=== PATIENT | male | born 1965 ===

== ENCOUNTER 2017-10-27 05:33 | Inpatient (IN) | payer BC ==
--- NOTE | 2017-10-23 09:25 | GHP ---
[f rep st] PREOP HISTORY AND PHYSICAL DATE OF ADMISSION: 10/26/2017 PROBLEM: Left hip severe degenerative arthritis. HISTORY OF PRESENT ILLNESS: The patient is a 52-year-old man admitted for a left hip Eleni hip resurfacing arthroplasty. He lives in [place]. He has had progressive pain in his left hip since 2010. It has been very painful since 2013. He is limping. He can still surf and play tennis but it is very painful for a couple of days after those activities. He tried stem cell treatments in April of 2015 which helped for about 6-12 months. He has been taking Tylenol. He has trouble putting on his shoes and socks on the left foot. He has modest pain in the right hip. He has done an extensive amount of yoga and physical therapy, trying to maintain his flexibility. He had 1 cortisone injection in the left hip in March of 2014 but he did not think it helped. He has failed nonsurgical treatment. He has severe degenerative arthritis. He is admitted for a left hip [place] hip resurfacing arthroplasty. PAST MEDICAL HISTORY: Overall he is in excellent general health. No history of heart disease, stents, DVT, hepatitis, MRSA staph infections, sleep apnea or bleeding problems. CURRENT MEDICATIONS: None. ALLERGIES: Drugs: None. Metal allergy: None. Latex allergy: None. SOCIAL HISTORY: The patient is . He does not smoke cigarettes and occasionally drinks alcohol. PHYSICAL EXAMINATION: VITAL SIGNS: Height 5 feet 11-1/2 inches. Weight 162 pounds, BMI 22.3. HEENT: Eyes, conjunctivae and sclerae are clear. Pupils are round and reactive. Mouth, good oral hygiene. No loose teeth. CHEST: Clear. HEART: Regular rhythm, no murmurs. EXTREMITIES: Pertinent findings limited to his left hip. He has full hip extension and 90 degrees of flexion. As he flexes the hip, he develops a 10 degree external rotation contracture and has 10 additional degrees of external rotation. Abduction 20 degrees. IMPRESSION ON ADMISSION: 1. Left hip severe degenerative arthritis which is very symptomatic. 2. Right hip moderate degenerative arthritis which is only mildly symptomatic. PLAN: He will undergo a left hip [place] hip resurfacing arthroplasty. The surgery has been described to him, including the risks, complications, expectations, and recovery time. I have discussed with him the risk of dislocation, femoral neck fracture, infection, and sciatic nerve injury. We have also discussed extensively the controversy and the potential problems with metal ions in the blood and in the soft tissues around the hip joint. He is familiar with the option of a conventional total hip replacement. All his questions have been answered, and he consents to surgery. /[id number]/MODL MTDD
[2017-10-27] MEDS ORDERED: GABAPENTIN 300 MG CAP PO ONE (05:57)
[2017-10-27] MEDS ORDERED: DEXAMETHASONE 4 MG/ML VIAL IVP ONE (05:57)
[2017-10-27] MEDS ORDERED: ceFAZolin 2 GM/DEXTROSE 100 ML IV ONE (05:57)
[2017-10-27] MEDS ORDERED: FAMOTIDINE 20 MG TAB PO ONE (05:57)
[2017-10-27] MEDS ORDERED: ACETAMINOPHEN 325 MG TAB PO ONE (05:57)
[2017-10-27] MEDS ORDERED: ONDANSETRON 4 MG/2 ML VIAL IVP ONE (05:57)
[2017-10-27] MEDS ORDERED: LR 1,000 ML IV ONE (05:58)
[2017-10-27] MEDS ORDERED: LIDOCAINE 1% 2 ML INJ ID PRN (05:58)
[2017-10-27] MEDS ORDERED: ROPIVACAINE 0.2% 80 MG, EPINEPHrine 0.2 MG, KETOROLAC TROMETHAMINE 30 MG in SYRINGE 0 ML IU ONE (06:00)
[2017-10-27] MEDS ORDERED: POVIDONE-IODINE 20 ML in SODIUM CL IRRIG SOLUTION 500 ML IRR ONE (06:00)
[2017-10-27] MEDS ORDERED: TRANEXAMIC ACID 1,000 MG in NS 100 ML IV ONE (06:00)
[2017-10-27] MEDS ORDERED: ceFAZolin 1 GM/5 ML SYR ONE (06:24)
[2017-10-27] MEDS ORDERED: MIDAZOLAM 2 MG/2 ML VIAL IVP ONE (06:51)
--- NOTE | 2017-10-27 06:51 | PDANEPAE ---
ANE History of Present Illness L hip OA ANE Past Medical History - Cardiovascular History Hx Hypertension: No Hx Arrhythmias: No Hx Chest Pain: No Hx Coronary Artery / Peripheral Vascular Disease: No Hx CHF / Valvular Disease: No Hx Palpitations: No - Pulmonary History Hx COPD: No Hx Asthma/Reactive Airway Disease: No Hx Recent Upper Respiratory Infection: No Hx Oxygen in Use at Home: No Hx Sleep Apnea: No Sleep Apnea Screening Result - Last Documented: Negative - Neurologic History Hx Cerebrovascular Accident: No Hx Seizures: No Hx Dementia: No - Endocrine History Hx Diabetes: No - Renal History Hx Renal Disorders: No - Liver History Hx Hepatic Disorders: No - Neurological & Psychiatric Hx Hx Neurological and Psychiatric Disorders: No - Cancer History Hx Cancer: No - Congenital Disorder History Hx Congenital Disorders: No - GI History Hx Gastrointestinal Disorders: No - Other Health History Other Health History: OSTEOARTHRITIS. HAIR LOSS - Chronic Pain History Chronic Pain: Yes (LT HIP) - Surgical History Prior Surgeries: NONE ANE Review of Systems Review of Systems: - Exercise capacity METS (RN): 6 METS ANE Patient History - Allergies Allergies/Adverse Reactions: No Known Allergies Allergy (Unverified 10/02/17 11:50) - Home Medications Home medications: home medication list seen and reviewed Home Medications: Acetaminophen [Tylenol ES 500 mg (*)] 500 mg PO DAILY PRN 10/02/17 [Last Taken 10/25/17] Carboxymethylcellulose 1% [Refresh Celluvisc (*)] 1 drop EACHEYE DAILY PRN 10/02 [Last Taken 1 Week Ago ~10/20/17] Finasteride [Proscar 5 MG (*)] 5 mg PO MOTUWETH 10/02/17 [Last Taken 10/24/17] Herbals/Supplements -Info Only 1 ea PO DAILY 10/02/17 [Last Taken 1 Week Ago ~] Vitamin B Complex [Vitamin B Complex (OTC)] 1 each PO DAILY 10/02/17 [Last Taken 1 Week Ago ~10/20/17] - NPO status NPO Since - Liquids (Date): 10/27/17 NPO Since - Liquids (Time): 00:00 NPO Since - Solids (Date): 10/26/17 NPO Since - Solids (Time): 20:00 - Anes Hx Anes Hx: no prior problems - Smoking Hx Smoking Status: Former smoker - Family Anes Hx Family Hx Anesthesia Complications: NEG ANE Labs/Vital Signs - Vital Signs Blood Pressure: 127/84 Heart Rate: 67 Respiratory Rate: 18 O2 Sat (%): 96 Height: 181.61 cm Weight: 73.482 kg ANE Physical Exam - Airway Neck exam: FROM Mallampati Score: Class 2 Mouth exam: normal dental/mouth exam - Pulmonary Pulmonary: no respiratory distress, no rales or rhonchi, clear to auscultation - Cardiovascular Cardiovascular: regular rate and rhythym, no murmur, rub, or gallop - ASA Status ASA Status: I ANE Anesthesia Plan Anesthesia Plan: MAC, spinal
--- NOTE | 2017-10-27 07:01 | PDHPUP ---
History & Physical Update H&P update statement: This history and physical update is based on an assessment of the patient which was completed after admission or registration (within 24 hours), but prior to the surgery/procedure. H&P update: H&P reviewed & patient examined
[2017-10-27] MEDS ORDERED: PROPOFOL/EMULSION 500 MG/50 ML BOTTLE IV ONE ×3 (07:02→08:39)
[2017-10-27] MEDS ORDERED: BUPIVACAINE/DEXTROSE 7.5MG/ML 2 ML SPINAL AMP SP ONE (07:03)
[2017-10-27] MEDS ORDERED: fentaNYL 100 MCG/2 ML INJ IVP PRN (08:18)
[2017-10-27] MEDS ORDERED: HYDROmorphONE/DILAUDID 1 MG/ML INJ IVP PRN (08:18)
[2017-10-27] MEDS ORDERED: NALOXONE HCL 0.4 MG/ML INJ IVP PRN (08:18)
[2017-10-27] MEDS ORDERED: ONDANSETRON 4 MG/2 ML VIAL IVP PRN ×2 (08:18→09:31)
--- NOTE | 2017-10-27 09:17 | POSTOPPROG ---
Post Op Note Date of Operation: 10/27/17 Surgeon: Kaveh Pappas Security Rep: Rodrigo Anesthesiologist: More Anesthesia: IV Sedation, Spinal Post-op Diagnosis: left hip arthritis Procedure: L BHR Inf/Abcess present in the surg proc area at time of surgery?: No EBL: 100-500
[2017-10-27] MEDS ORDERED: TEMAZEPAM 15 MG CAP PO PRN (09:31)
[2017-10-27] MEDS ORDERED: BISACODYL 10 MG SUPP PR PRN (09:31)
[2017-10-27] MEDS ORDERED: MAGNESIUM HYDROXIDE 30 ML UDCUP PO PRN (09:31)
[2017-10-27] MEDS ORDERED: diphenhydrAMINE 25 MG CAP PO PRN (09:31)
[2017-10-27] MEDS ORDERED: PROMETHAZINE HCL 25 MG/ML INJ IVP PRN (09:31)
[2017-10-27] MEDS ORDERED: oxyCODONE IR 5 MG TAB PO PRN (09:31)
[2017-10-27] MEDS ORDERED: CARBOXYMETHYLCELLULOSE 1% 0.4 ML DROPERETTE EACHEYE PRN (09:31)
[2017-10-27] MEDS ORDERED: ONDANSETRON DISINTEGRATING 4 MG TAB PO PRN (09:31)
[2017-10-27] MEDS ORDERED: PROMETHAZINE HCL 25 MG SUPPR PR PRN (09:31)
[2017-10-27] MEDS ORDERED: POLYETHYLENE GLYCOL 3350 17 GM PKT PO PRN (09:31)
[2017-10-27] MEDS ORDERED: DIPHENOXYLATE/ATROPINE LOMOTIL 1 TAB PO PRN (09:31)
[2017-10-27] MEDS ORDERED: METOCLOPRAMIDE 10 MG/2 ML VIAL IVP PRN (09:31)
[2017-10-27] MEDS ORDERED: traMADol 50 MG TAB PO PRN (09:31)
[2017-10-27] MEDS ORDERED: LACTULOSE 20 GM/30 ML UDCUP PO PRN (09:31)
[2017-10-27] MEDS ORDERED: NS 500 ML IV PRN (09:31)
[2017-10-27] MEDS ORDERED: CYCLOBENZAPRINE 10 MG TAB PO PRN (09:31)
--- NOTE | 2017-10-27 09:37 | POSTANESTH ---
Post Anesthetic Evaluation Cardiovascular Status: Normal, Stable Respiratory Status: Normal, Stable Level of Consciousness/Mental Status: Alert and Oriented Pain Control: Adequate, Prn Tx Ordered Nausea/Vomiting Control: Adequate, Prn Tx Ordered Complications Possibly Related to Anesthesia: None Noted
[2017-10-27] MEDS ORDERED: LR 1,000 ML IV SCH (10:00)
--- NOTE | 2017-10-27 10:02 | GOP ---
[f rep st] OPERATIVE REPORT DATE OF OPERATION: 10/27/2017 SURGEON: Kaveh Pappas MD WARNING ANALYST: RASHMI Wing PAC ANESTHESIA: Combination of Marcaine, spinal, and IV sedation. ANESTHESIOLOGIST: Dr. Gibran Aguero. PREOPERATIVE DIAGNOSIS: Left hip severe degenerative arthritis. POSTOPERATIVE DIAGNOSIS: Left hip severe degenerative arthritis. PROCEDURE PERFORMED: Left hip Eleni hip resurfacing arthroplasty. FINDINGS: ESTIMATED BLOOD LOSS: About 400 mL. I used a [employer] Eleni hip resurfacing system. The acetabular component was 58 mm in d iameter and press fit. The femoral head was 52 mm and cemented. He was awakened from anesthesia, an d rolled to the supine position on his [facility]. A long-leg compressive stocking and SCD were applied to the operative leg. An abduction pillow was placed between his knees. He was awakened fr om anesthesia, transferred to his [facility], and taken to PACU in satisfactory condition. Ther e were no recognized intraoperative complications. DESCRIPTION OF PROCEDURE: The patient was given 2 g of IV Ancef within 60 minutes of surgery. He al so received IV tranexamic acid at a dose of 1000 mg. He was placed on the operating room table and g iven spinal anesthesia with Marcaine by Dr. Aguero. He was then placed supine and given IV sed ation. A [place] catheter was not used. He wore a compressive stocking and SCD on the nonoperative le g. The patient was rolled to the right lateral decubitus position. An axillary roll was used, and a ll pressure points were carefully padded. The position was secured with the pegboard table attachmen t. I was careful to lock his pelvis in a rigid vertical position. His perineum was isolated with pl astic adhesive drapes. The left hip and left lower extremity were prepped with ChloraPrep. They wer e draped free using sterile sheets, stockinette, and Ioban plastic drape. The [employer] time-out was performed to verify the correct patient identity and the c orrect surgical side and site. The [place] time-out was also performed. I made a 6-7 inch straight oblique posterolateral hip skin incision. Subcutaneous tissues were sharp ly divided, and hemostasis was obtained using electrocautery. His fascia carlos was identified and spl it along the axis of its fibers. I then curved posteriorly and proximally, and split the fascia of g luteus willy and bluntly split the muscle fibers in line with their orientation. His sciatic nerve was identified and protected throughout the procedure. The [place]ley self-retaining retractor was in serted. The external rotators and the posterior hip capsule were divided as separate layers at the b ase of the femoral neck, tagged, and reflected posteriorly. The gluteus willy tendon was divided a nd tagged in order to improve exposure and release tension on the sciatic nerve. The hip was disloca giancarlo posteriorly. He had very severe degenerative changes on his femoral head and neck. He had large anterior neck osteophytes. He had significant coxa magna. I used a sizing gauge to check the diame ter of the neck and concluded that 52 mm was the proper head size. I performed a complete circumfere ntial capsulotomy. I was able to retract the femoral head anteriorly and superiorly, and hold it out of place with appropriate retractors. The remnant of his damaged labrum was excised. His acetabulu m was reamed sequentially up to 58 mm. I selected the Eleni monoblock porous-coated acetabular component with an outside diameter of 58 mm. This was firmly impacted and was a very tight fit. I w as careful to determine proper inclination and anteversion. I used the transverse acetabular ligamen t and other acetabular bony landmarks to help me determine proper cup orientation. He had a large po sterior-inferior osteophyte which I removed with an osteotome and rongeur. He also had a small anter ior osteophyte, which I removed with a rongeur. I was careful to leave a lip of bone and capsule ext ending beyond the anterior-inferior lip of the metal cup. I then returned to preparation of the femoral head. Using appropriate jigs and guides, I inserted a guide pin into the femoral head and neck. I was careful to position in such a way that there would b e no notching of the neck. The large sterile metal goniometer was used to check the neck shaft angle . I reamed over the guide pin and inserted the reaming guide. I then used the cylindrical reamer do wn to the head and neck junction. This was followed by the flat reamer and the chamfer reamer. The head was sized for 52 mm. There was no impingement or damage on the neck. He had some soft anterior neck osteophytes, which I trimmed with a rongeur. He also had 3 small cysts in the superolateral as pect of the head. These cysts were curetted down to healthy bone and later filled with bone cement. I drilled a small hole in the lesser trochanter and inserted a suction cannula to create negative pr essure in the medullary canal. Small holes were drilled on the flat and chamfer surfaces of the prep ared head for cement anchors. The head was thoroughly cleaned with the pulsating lavage and carefull y dried. I used a CarboJet device to blow dry the cancellous surfaces. A single batch of Simplex ce ment with tobramycin was mixed. At about 50 seconds, I poured liquid cement into the head component, inserted it onto the prepared femoral head, and impacted it into place. Excess cement was removed b efore it hardened. The acetabulum was irrigated, cleaned, and inspected, and the hip was reduced. Stability and range o f motion were checked. I placed my finger along the anterior aspect of the acetabular component and flexed the hip to 110 degrees. There was no anterior impingement. The suction cannula on the lesser trochanter was removed. The wound was thoroughly irrigated with a dilute Betadine solution. 40 mL of the joint anesthetic cocktail was injected into the capsule, the deep musculature, and the subcuta neous tissues along the skin edges. His sciatic nerve was reinspected and looked unharmed. The external rotators and the posterior hip c apsule were repaired in separate layers with #2 FiberWire sutures through drill holes in the greater trochanter. The gluteus willy tendon was repaired with two #2 [id number] FiberWire sutures. The fascia carlos was repaired first with 2 interrupted [id number] #2 FiberWire sutures followed b y a running #2 barbed Ethicon Stratafix PDO suture. The subcutaneous tissues were closed with a runn ing 0 barbed Ethicon StrataFix Monoderm suture. The skin was closed with a running 3-0 barbed Ethico n Stratafix Monoderm subcuticular suture. The skin edges were reapproximated and sealed with Dermabo nd glue. The wound was covered with a piece of large sterile Mepilex waterproof dressing. The sacra l Mepilex dressing was also applied. COUNT: The sponge and needle count were correct on 2 occasions. Inocencio Rudolph and Robbie Daniels acted as surgical assistants. Their assistance was a medical necess ity for safe completion of the procedure. Copy requested to: Inocencio Rudolph /[id number]/MODL
[2017-10-27] MEDS ORDERED: ACETAMINOPHEN 325 MG TAB ONE (11:57)
[2017-10-27] MEDS ORDERED: KETOROLAC 15 MG/1 ML SDV ONE (11:58)
[2017-10-27] MEDS: ACETAMINOPHEN 325 MG TAB PO SCH ×3 (12:01→23:35)
[2017-10-27] MEDS: KETOROLAC 15 MG/1 ML SDV IVP SCH ×3 (12:02→23:35)
--- NOTE | 2017-10-27 13:13 | PDMN ---
Medical Necessity Medical necessity: Pt meets INPT criteria per and [facility]
[2017-10-27] MEDS: FINASTERIDE 5 MG TAB PO SCH (13:15)
[2017-10-27] MEDS: ceFAZolin 2 GM/DEXTROSE 100 ML IV SCH ×2 (16:02→23:36)
[2017-10-27] MEDS: FAMOTIDINE 20 MG TAB PO SCH (20:59)
[2017-10-27] MEDS: ASPIRIN 325 MG TAB PO SCH (20:59)
[2017-10-27] MEDS: SENNOSIDES/DOCUSATE SODIUM TAB PO SCH (21:00)
[2017-10-28] MEDS: ACETAMINOPHEN 325 MG TAB PO SCH ×2 (05:51→11:49)
[2017-10-28] MEDS: KETOROLAC 15 MG/1 ML SDV IVP SCH (05:52)
[2017-10-28] MEDS: FAMOTIDINE 20 MG TAB PO SCH (08:54)
[2017-10-28] MEDS: ASPIRIN 325 MG TAB PO SCH (08:54)
[2017-10-28] MEDS ORDERED: FERROUS SULFATE 140 MG TAB.ER PO SCH (09:00)
[2017-10-28] MEDS: FINASTERIDE 5 MG TAB PO SCH (09:02)
[2017-10-28] MEDS: SENNOSIDES/DOCUSATE SODIUM TAB PO SCH (09:39)
[2017-10-28 11:29] VITALS: BP 108/68
--- NOTE | 2017-10-28 12:55 | SOAPPROG ---
SOAP Progress Note Assessment/Plan: Assessment: Afebrile. Mild pain. Has been up and walking. Dsg is dry. H/H is good. Sciatic nerve intact. Films look good. Plan: PT today. DC later today. 10/28/17 12:54 Objective: Vital Signs Temp Pulse Resp BP Pulse Ox 36.6 C 71 16 108/68 95 10/28/17 11:29 10/28/17 11:29 10/28/17 11:29 10/28/17 11:29 10/28/17 11:29 Laboratory Results 10/28/17 04:30 10/27/17 10/28/17 10/29/17 05:59 05:59 05:59 Intake Total 1710 Output Total 2250 Balance -540 ICD10 Worksheet Patient Problems: Problems Problem Status Onset Osteoarthritis of left hip Acute
--- NOTE | 2017-10-28 13:09 | GDS ---
[f rep st] DISCHARGE SUMMARY ADMISSION DIAGNOSIS: Left hip severe degenerative arthritis. DISCHARGE DIAGNOSIS: Left hip severe degenerative arthritis. OPERATION PERFORMED: 10/27/2017, left hip [place] hip resurfacing arthroplasty. POSTOPERATIVE COMPLICATIONS: None. CONDITION ON DISCHARGE: Improved. DESCRIPTION OF HOSPITAL COURSE: The patient was admitted to the hospital the morning of surgery. Raul contreras preoperative CBC was normal. The same day, under a combination of Marcaine, spinal, and IV sedatio n, he underwent a left hip [place]eni hip resurfacing arthroplasty. Postoperatively, he was treated with multimodal DVT prophylaxis including aspirin and early mobilization. On the first postoperative day, his hemoglobin and hematocrit were 14.0 and 39.9. He was seen by Physical Therapy and made exc ellent progress with ambulation and stairs. By the time of discharge, he was afebrile, his wound was clean and dry, and he was independent walking with a walker. DISPOSITION: The patient is staying in a hotel here locally. He lives in [place]. I will see raul larry back in the office this coming Thursday. Continue aspirin 325 mg p.o. daily for 21 days. Continue C elebrex daily for 21 days. He has a prescription for oxycodone and tramadol for additional pain cont rol. Use an abduction pillow in bed for 3 weeks. He may progress to full weightbearing as tolerated . /[id number]/MODL
--- NOTE | 2017-10-28 13:45 | ASMTCMCOM ---
CM Note CM Note Notes: PT rec home/outpatient. Pt to d/c to local hotel and follow up with ortho surgeon before returning to [place]. Pt medically stable for d/c, no CM d/c needs identified. Date Signed: 10/28/2017 01:45 PM Electronically Signed By:JG Menezes
== END 2017-10-28 13:49 | disposition home or self-care (01) | DRG 470 ==
LOC: F3N 05:33
PROVIDERS: ADMIT Orthopaedic Surgery; ATTEND Orthopaedic Surgery
PROC: 0SUB0BZ Supplement Left Hip Joint with Resurfacing Device, Open Approach (ICD-10-PCS; principal; 2017-10-27 07:15)
DX: M16.12 Unilateral primary osteoarthritis, left hip (principal)
CPT/HCPCS: 97116-GP; 97161-GP; 97165-GO; 97530-GP; 97535-GO; C1713; J0171; J0690; J1100; J1885; J2250; J2405; J2704; J2795